=== PATIENT | male | born 1950 | race Caucasian/White ===

== ENCOUNTER → 2018-10-04 | Outpatient (CLI) | payer OTHER, MEDICARE ==
[~2018-10-04] VITALS: Ht 177.8 cm; Wt 127.0 kg
[~2018-10-04] MED LIST: CARDIZEM CD120 MG PO; LIPITOR80 MG PO; METFORMIN HCL500 MG PO; NIASPAN ER 101000 M1 PO; PLAVIX 75 MG TA75 M1 PO; PRINIVIL20 MG PO; TOPROL XL100 MG PO; TRAZODONE 150150 M1 PO
[2018-10-04 08:22] VITALS: BP 195/61
[2018-10-04 08:49] LABS: HEMATOCRIT 37.3 % (42.0-52.0); HEMOGLOBIN 11.8 gm/dL (14.0-18.0); MCH 27.4 pg (26.0-34.0); MCHC 31.7 g/dL (28.0-37.0); MCV 86.3 fL (80.0-100.0); RBC 4.32 mil/uL (4.50-6.00); RDW 15.7 % (10.5-14.5); WBC 12.4 thou/uL (4.0-11.0)
[2018-10-04 08:57] LABS: CALCIUM 9.1 mg/dL (8.5-10.1); CREATININE 1.5 mg/dL (0.7-1.3); POTASSIUM 4.2 mmol/L (3.5-5.1)
--- NOTE | 2018-10-04 13:42 | EKG ---
[address] [address] ELECTROCARDIOGRAM REPORT Name: BELEM ALLEN Room #: REG CLBell Acevedo#: [id number] Admission: 10/04/18 Attend Phys: Frantz Segura Discharge: Date of : 50 Report #: [id number] THIS REPORT FOR: //name// [facility] Test Date: 2018-10-04 Test Time: 08:27:08 Pat Name: BELEM ALLEN Department: Room: Gender: Environmental Coordinator: Carlos Alberto MOREL : 1950 Requested By: Frantz Segura Order Number: [id number] MD: Ko Burdick Measurements Intervals [place] Rate: 62 P: 61 [place]: 194 QRS: 21 QRSD: 110 T: 146 QT: 461 QTc: 469 Interpretive Statements Sinus rhythm No previous ECG available for comparison Electronically Signed On 10-04-2018 13:41:59 HIGH TENSION TESTER by Ko Burdick [email or web address] <ELECTRONICALLY SIGNED> By: Ko Burdick MD 10/04/18 1341 0827 6 Ko Burdick MD /LOUIS
--- NOTE | 2018-10-06 00:21 | H ---
[facility] [place] [address] [place] [address] HISTORY AND PHYSICAL Name: BELEM ALLEN [facility] #: [id number] Admission: 10/04/18 Attend Phys: Frantz Segura Discharge: Date of : 50 Report #: [id number] THIS REPORT FOR: //name// CC: Froylan Valente Frantz Segura DATE OF SERVICE: 10/04/2018 HISTORY OF PRESENT ILLNESS: This is a pleasant gentleman who was seen in the office for progressive shortness of breath. Echocardiogram demonstrated the presence of a flail mitral valve leaflet. He underwent a TIBURCIO, which confirmed the presence of significant mitral regurgitation, which has progressed dramatically from 1 year ago. He now presents for cardiac catheterization for coronary anatomy delineation prior to valve repair. PHYSICAL EXAMINATION: GENERAL: Well-developed, well-nourished male, resting comfortably, in no distress. HEENT: Normocephalic, atraumatic. Pupils are equal, round, reactive to light and accommodation. Extraocular muscles are intact. Sclerae and conjunctivae are anicteric. NECK: JVD is normal. Carotid upstrokes are bilaterally symmetrical. No bruits are heard. No thyromegaly. No lymphadenopathy. LUNGS: Clear to auscultation. No wheezes, rhonchi or crackles. No CVA tenderness. CARDIAC: Demonstrates a regular rhythm. Grade 2-3/6 systolic murmur heard from the base to the apex to the axilla. No diastolic murmurs are noted. ABDOMEN: Soft, nontender, nondistended. Normal bowel sounds. EXTREMITIES: Without cyanosis, clubbing or edema. Distal pulses are intact. DTR symmetrical. NEUROLOGIC: Cranial nerves 2-12 are grossly normal and symmetrical. PSYCHIATRIC: Alert, oriented with normal affect. SKIN: Warm and dry. IMPRESSION AND PLAN: Dyspnea on exertion with evidence of mitral valve disease with mitral regurgitation and flail leaflet requiring repair. Cardiac catheterization was recommended for coronary anatomy delineation. The risks, complications and alternatives to cath, angioplasty, conscious sedation have been discussed with the patient; voices understanding and wishes to proceed. <ELECTRONICALLY SIGNED> By: Frantz Segura MD 10/06/18 0021 0947 1020 Frantz Segura MD /nt
--- NOTE | 2018-10-08 13:26 | CATHLAB ---
[facility] [address] [place] [address] INVASIVE PROCEDURE REPORT Name: BELEM ALLEN Room #: REG Curtis#: [id number] Admission: 10/04/18 Attend Phys: Frantz Redd Discharge: Date of : 50 Date of Service: 10/08/18 1326 Report #: [id number] THIS REPORT FOR: //name// APPROVED REPORT Study performed: 10/04/2018 09:25:54 Patient Details Patient Status: Out-Patient Room #: The patient is a 68 year-old male Event Personnel Frantz Segura Functional Skills Tutor, Kenneth Nam RN RN, Paty Olvera Sandifer, David Monitor Procedures Performed Left Heart Cath Coronaries, Bypass Grafts [id number] [facility], supervision of conscious sedation Indication Positive stress test, Chest pain Procedure Narrative The Right Groin^ was infiltrated with 1% Lidocaine subcutaneous anesthesia. A MYNXGRIP 5F #[id number] sheath was inserted into the RFA^. Coronary angiography was performed using coronary diagnostic catheters. The right coronary system was accessed and visualized with a JR4 catheter. The left coronary system was accessed and visualized with a JL4 catheter. Closure device was deployed with a 5 Fr MYNXGRIP 5F #[id number]. The patient tolerated the procedure well and there were no complications associated with the procedure. There was no hematoma. Intraoperative Conscious Sedation Sedation start time: 10.24 Case end Time: 11.12 Fentanyl 50 mcg Versed 3 mg Fluoro Time: 10.21 minutes Dose: DAP 24343 cGycm2 1461 mGy Contrast Type and Amount: Omnipaque 90 ml Coronary Angiography The patient's coronary anatomy is right dominant. [facility] [place] [place] [address] INVASIVE PROCEDURE REPORT Name: BELEM ALLEN Room #: REG [facility]#: [id number] Admission: 10/04/18 Attend Phys: Frantz Redd Discharge: Date of : 50 Date of Service: 10/08/18 1326 Report #: [id number] [place] Artery Percent Stenosis Grafts (Complete if Previous CABG=Yes: Percent Stenosis) Left Main: % Prox LAD: 0 % Mid/Distal LAD: % Circumflex: 10 % RCA: 100 % Ramus: % Diagnostic Cath Left Main Left main is of normal origin and caliber bifurcates left anterior descending left circumflex. It tapers to the distal portion to a circumferential less than 30% lesion. Nonflow limiting. LAD Small-caliber vessel which is diffusely diseased proximally. It gives a septal structural steel engineer and a small diagonal branches is significantly disease but less than half a millimeter in diameter. The LAD proper then terminates from antegrade injection. The mid and distal LAD is filled via BUI graft and demonstrates a moderate to large caliber vessel with only luminal irregularities noted. Bifurcates into a A. fib branching inferoapical wall network of vessels which has 1 branch which is high-grade disease. Less than half a millimeter in diameter as illness tape with diffuse disease Diagonal 1 Small insignificant caliber disease Circumflex Small-caliber vessel which courses in the AV groove giving rise to first marginal branch. The first marginal branch has multiple branches supplying the lateral wall of the left ventricle. The circumflex proper then continues as a small-caliber vessel in the AV groove posteriorly terminates prior to reaching the crux of the heart. Small collaterals are noted between across and filling the posterior lateral branch of the right coronary artery. OM1 Moderate caliber vessel is a has a gym at its ostium. It then reconstitutes itself having numerous branches with moderate diffuse disease noted. There is retrograde filling via saphenous vein graft anastomosis. Right Coronary 100% occluded proximally. The distal lateral branch and the posterior descending artery is small-caliber vessel filled via [id number]-pogzj collaterals they are small in caliber diffusely diseased R PDA No caliber diffusely diseased vessel filling from evlv-ln-ankof collaterals RPLV Small-caliber vessel consisting of 2's posterior wall branches which fill via circumflex collaterals. Has moderate diffuse disease noted Left Ventriculography Left Ventriculography was not performed. [address] [address] INVASIVE PROCEDURE REPORT Name: BELEM ALLEN Room #: REG IVÁN Acevedo#: [id number] Admission: 10/04/18 Attend Phys: Frantz Redd Discharge: Date of : 50 Date of Service: 10/08/18 1326 Report #: [id number] Hemodynamics The aortic pressure is 219/91 mmHg with a mean of 136 mmHg. Conclusion 1. Coronary disease status post aortocoronary bypass grafting with progression of [place] disease and occlusion of the right coronary graft 2. Patent BUI to the LAD and SVG to the left circumflex system 3. Abnormal hemodynamics with elevated left ventricular end-diastolic pressures Recommendations Cardiac Risk Reduction Program Medical Therapy <ELECTRONICALLY SIGNED> By: Frantz Segura MD 10/08/18 1326 132 25 Frantz Segura MD /INF
== END | disposition home or self-care (01) ==
LOC: CATH 08:02
PROVIDERS: Internal Medicine
DX: I25.10 Atherosclerotic heart disease of native coronary artery without angina pectoris (principal); I10 Essential (primary) hypertension; I42.9 Cardiomyopathy, unspecified; E11.9 Type 2 diabetes mellitus without complications; G47.33 Obstructive sleep apnea (adult) (pediatric); E78.5 Hyperlipidemia, unspecified; I73.9 Peripheral vascular disease, unspecified; E66.09 Other obesity due to excess calories; Z87.891 Personal history of nicotine dependence; Z86.73 Personal history of transient ischemic attack (TIA), and cerebral infarction without residual deficits; Z82.49 Family history of ischemic heart disease and other diseases of the circulatory system; Z95.1 Presence of aortocoronary bypass graft; Z95.820 Peripheral vascular angioplasty status with implants and grafts; Z79.899 Other long term (current) drug therapy; Z98.890 Other specified postprocedural states; Z90.5 Acquired absence of kidney